=== PATIENT | male | born 1985 | race African-American/Black ===

== ENCOUNTER → 2019-06-16 | Day surgery (SDC) | payer BC ==
[~2019-06-16] MED LIST: DONNATAL/LIDOCAINE/MAALOX 30 ML SUSP PO ONE; FENTANYL CITRATE/PF 100MCG/2 ML INJ ONE; LIDOCAINE HCL 2% LOCAL INJ 5 ML SDV VIAL INJ ONE; MIDAZOLAM HCL 2 MG/2 ML VIAL ONE; PANTOPRAZOLE 40 MG 10ML VIAL ONE; PROPOFOL IV EMULSION 10 MG/ML 50 ML VIAL ONE
[2019-06-16 08:20] VITALS: BP 131/85
--- NOTE | 2019-06-16 08:20 | Operative Report ---
DATE OF PROCEDURE: 06/16/2019 SURGEON: Pilo Escobar MD PROCEDURE: EGD with biopsies. INDICATIONS FOR EGD: Upper abdominal pain. MEDICATION: The patient was done under MAC, please see anesthesiologist's note. PROCEDURE IN DETAIL: With the patient in left lateral decubitus position, a flexible fiberoptic Olympus gastroscope was introduced into the esophagus under direct visualization without any difficulty. There were some patchy erythema noted in the distal esophagus. The scope was then advanced with ease into the stomach and the mucosa overlying the antrum and the body revealed some patchy erythema and low-grade to moderate edema and biopsies were obtained, sent to stain for H pylori. The pylorus was of normal contour and shape, it was intubated with ease and the scope was advanced all the way to the second portion of the duodenum. Biopsies were obtained from the second portion and the duodenal bulb to rule out sprue. There was a minute cystic structure in the periampullary area and that was biopsied. The scope was then withdrawn back into the stomach and retroflexed. Mucosa overlying the fundus and the cardia appeared to be within normal limits. The scope was then straightened out, it was subsequently withdrawn. The patient tolerated the procedure well. IMPRESSION: 1. Distal esophagitis, mild. 2. Gastritis, biopsied. Biopsies sent to stain for Helicobacter pylori. 3. Rule out sprue. 4. Approximately 4 mm cyst in the periampullary area of the proximal second portion of the duodenum, biopsied. PLAN: Follow up histology. Initiate Dexilant 60 mg one p.o. q.a.m. before meals. We will give a trial of GI cocktail prior to discharge. Pilo Escobar MD [facility] /[id number] cc: Sarah Monahan DO
--- OUTSIDE RECORDS SUMMARY | 2019-06-17 09:49 | XMS REPORT ---
Author Author Sada Luo [facility] [employer] Address Unknown Phone Unavailable Care Team Providers Care Supervisor Looping Name Role Phone Sada Luo CP Unavailable Allergies, Adverse Reactions, Alerts Substance Reaction Event Type N.K.D.A. Info Not Available Non Drug Allergy Problems Problem Type Condition Code Onset Dates Condition Status Problem GERD (gastroesophageal reflux disease) K21.9 Active Problem BMI 24.0-24.9, adult Z68.24 Active Problem Mixed hyperlipidemia E78.2 Active Assessment Encntr screen for infections w sexl mode of transmiss Z11.3 Active Assessment GERD (gastroesophageal reflux disease) K21.9 Active Assessment Encntr for general adult medical exam w/o abnormal findings Z00.00 Active Medications No Known Medications Vital Signs Date/Time: May 21, 2019 BMI 27.94 Index Weight 206 lbs Height 72 in Cardiac Monitoring Heart Rate 67 /min Blood Pressure Diastolic 84 mm Hg Blood Pressure Systolic 126 mm Hg Results Name Result Date Reference Range Unit Abnormality Flag CBC (INCLUDES DIFF/PLT) ----ABSOLUTE NEUTROPHILS 2331 [id number] 9972-8959 cells/uL N ----MPV 11.1 [id number] 7.5-12.5 fL N ----EOSINOPHILS 2.4 67559468 % N ----HEMOGLOBIN 15.9 62771794 13.2-17.1 g/dL N ----MONOCYTES 10.7 99112340 % N ----HEMATOCRIT 48.9 21926707 38.5-50.0 % N ----LYMPHOCYTES 35.8 74135542 % N ----MCV 81.2 84751633 80.0-100.0 fL N ----NEUTROPHILS 49.6 14823575 % N ----MCH 26.4 45432498 27.0-33.0 pg L ----ABSOLUTE BASOPHILS 71 23366349 0-200 cells/uL N ----MCHC 32.5 13535777 32.0-36.0 g/dL N ----BASOPHILS 1.5 96905666 % N ----ABSOLUTE EOSINOPHILS 113 20190521 15-500 cells/uL N ----RDW 13.1 20190521 11.0-15.0 % N ----ABSOLUTE MONOCYTES 503 20190521 200-950 cells/uL N ----WHITE BLOOD CELL COUNT 4.7 20190521 3.8-10.8 Thousand/uL N ----PLATELET COUNT 203 20190521 140-400 Thousand/uL N ----RED BLOOD CELL COUNT 6.02 02200533 4.20-5.80 Million/uL H ----ABSOLUTE LYMPHOCYTES 1683 20190521 850-3900 cells/uL N URINALYSIS, COMPLETE ----SQUAMOUS EPITHELIAL CELLS NONE SEEN 76412652 < OR=5 /HPF N ----GLUCOSE NEGATIVE 12802234 NEGATIVE N ----RBC NONE SEEN 63841672 < OR=2 /HPF N ----PH 8.0 20190521 5.0-8.0 N ----KETONES NEGATIVE 20190521 NEGATIVE N ----WBC NONE SEEN 23466834 < OR=5 /HPF N ----BILIRUBIN NEGATIVE 42740968 NEGATIVE N ----LEUKOCYTE ESTERASE NEGATIVE 20190521 NEGATIVE N ----COLOR YELLOW 20190521 YELLOW N ----HYALINE CAST NONE SEEN 20190521 NONE SEEN /LPF N ----SPECIFIC GRAVITY 1.027 20190521 1.001-1.035 N ----BACTERIA NONE SEEN 20190521 NONE SEEN /HPF N ----APPEARANCE CLEAR 20190521 CLEAR N ----NITRITE NEGATIVE 20190521 NEGATIVE N ----OCCULT BLOOD NEGATIVE [id number] NEGATIVE N ----PROTEIN NEGATIVE 20190521 NEGATIVE N UREA BREATH TEST, INFRARED (UBIT) ----RESULT: NOT DETECTED 20190521 NOT DETECTED N LIPID PANEL ----NON HDL CHOLESTEROL 190 81881219 <130 mg/dL (calc) H ----LDL-CHOLESTEROL 159 39870440 mg/dL (calc) H ----CHOL/HDLC RATIO 5.6 45631569 <5.0 (calc) H ----HDL CHOLESTEROL 41 17058886 >40 mg/dL N ----TRIGLYCERIDES 159 79461896 <150 mg/dL H ----CHOLESTEROL, TOTAL 231 20190521 <200 mg/dL H HIV 1/2 ANTIGEN/ANTIBODY,FOURTH GENERATION W/RFL ----HIV AG/AB, 4TH GEN NON-REACTIVE 20190521 NON-REACTIVE N RPR (DX) W/REFL TITER AND CONFIRMATORY TESTING ----RPR (DX) W/REFL TITER AND CONFIRMATORY TESTING NON-REACTIVE 20190521 NON- REACTIVE N HEPATITIS B SURFACE ANTIGEN W/REFL CONFIRM ----HEPATITIS B SURFACE ANTIGEN NON-REACTIVE [id number] NON-REACTIVE N COMPREHENSIVE METABOLIC PANEL W/O eGFR ----CARBON DIOXIDE 27 20190521 20-32 mmol/L N ----CHLORIDE 102 20190521 98-110 mmol/L N ----POTASSIUM 4.3 20190521 3.5-5.3 mmol/L N ----SODIUM 135 20190521 135-146 mmol/L N ----BUN/CREATININE RATIO 20 20190521 6-22 (calc) N ----CREATININE 1.34 20190521 0.60-1.35 mg/dL N ----UREA NITROGEN (BUN) 27 20190521 7-25 mg/dL H ----GLUCOSE 87 20190521 65-99 mg/dL N ----BILIRUBIN, TOTAL 0.6 20190521 0.2-1.2 mg/dL N ----ALKALINE PHOSPHATASE 75 20190521 40-115 U/L N ----AST 27 20190521 10-40 U/L N ----ALT 33 20190521 9-46 U/L N ----PROTEIN, TOTAL 7.5 20190521 6.1-8.1 g/dL N ----ALBUMIN 4.9 20190521 3.6-5.1 g/dL N ----GLOBULIN 2.6 20190521 1.9-3.7 g/dL (calc) N ----ALBUMIN/GLOBULIN RATIO 1.9 20190521 1.0-2.5 (calc) N ----CALCIUM 9.7 20190521 8.6-10.3 mg/dL N SURESWAB(R) CHLAMYDIA/ N. GONORRHOEAE RNA, TMA ----NEISSERIA GONORRHOEAE RNA, TMA NOT DETECTED 20190521 NOT DETECTED N ----CHLAMYDIA TRACHOMATIS RNA, TMA NOT DETECTED 20190521 NOT DETECTED N TSH W/REFLEX TO FT4 ----TSH W/REFLEX TO FT4 1.54 20190521 0.40-4.50 mIU/L N Summary Purpose eClinicalWorks Submission
--- OUTSIDE RECORDS SUMMARY | 2019-06-17 09:49 | XMS REPORT | Summary of Care ---
Author Author [facility] General Surgery [facility] Organization [facility] General Surgery [facility] Address Unknown Phone Unavailable Encounter HQ Encntr_alias(FIN) [id number] Date(s): 10/13/18 - 10/14/18 [facility] General Surgery [facility] [address] [address] [place] [address]- [phone] Vital Signs No data available for this section Problem List Condition Effective Dates Status Health Status Informant Spleen Active disease(Probable Diagnosis) Lymphadenopathy(Prob Active able Diagnosis) Skin lesion(Probable Active Diagnosis) Allergies, Adverse Reactions, Alerts No Known Medication Allergies Medications No data available for this section Results No data available for this section Immunizations No data available for this section Procedures No data available for this section Social History Social History Type Response Substance Abuse Use: None. Alcohol Never Smoking Status Never smoker; Exposure to Tobacco Smoke None; Cigarette Smoking Last 365 Days No; Reg Smoking Cessation Counseling No entered on: 09/26/18 Assessment and Plan No data available for this section
--- OUTSIDE RECORDS SUMMARY | 2019-06-17 09:49 | XMS REPORT | Continuity of Care Document ---
Author Author [place] Address Unknown Phone Unavailable Care Team Providers Care Brass Pickler Name Role Phone Pattern [employer] Information [facility] Unavailable Unavailable Problems Problem Status Onset Date Classification Date Reported Comments Source Disease of spleen, unspecified 10/13/2018 04/27/2019 [facility] DX: L98.9=DISORDER OF THE SKIN AND SUBCU Active 09/29/2018 [facility] Epigastric pain 01/28/2018 04/29/2018 [facility] Abdominal pain, epigastric 01/21/2018 04/29/2018 [facility] ABD/BACK PAIN Active 01/21/2018 [facility] M25.311 - "OTHER INSTABILITY, RIGHT SHOU Active 12/08/2016 JACQUELINE Spaulding, JACQUELINE Kaufman GERD Active Problem 06/08/2019 [facility] BMI 24.0-24.9, adult Active Problem 06/08/2019 [facility] Mixed hyperlipidemia Active Problem 06/08/2019 [facility] Encntr screen for infections w sexl mode of transmiss Active Diagnosis 06/08/2019 [facility] Encntr for general adult medical exam w/o abnormal findings Active Diagnosis 06/08/2019 [facility] Esophageal candidiasis Active Diagnosis 11/11/2018 [facility] Skin rash Active Diagnosis 11/11/2018 [facility] Disorder of the skin and subcutaneous tissue, unspecified 04/27/2019 [facility] Generalized enlarged lymph nodes 04/27/2019 [facility] Dorsalgia, unspecified 04/29/2018 [facility] Spleen disease Active Problem 05/06/2019 [facility] Lymphadenopathy Active Problem 05/06/2019 [facility] Skin lesion Active Problem 05/06/2019 [facility] Medications Medication Details Route Status Patient Instructions Ordering Provider Order Date Source Diflucan 1 tablet Orally Active 100 mg Orally twice a day (bid) Ghebranious 10/31/2018 [facility] Omnipaque 300 injectable solution 100 mL, Route: IV, Drug Form: SOLN, Dosing Weight 80.994, kg, ONCALL, GFR > 45 mL/min, Start date: 10/07/18 10:00:00 SPECIAL SERVICE REPRESENTATIVE, Duration: 1 doses or times, Stop date: 10/08/18 0:00:00 CSTNotes: (Same as:Omnipaque 300). WASTE: F/P - Black; E - Municipal Trash Bin No Longer Active 10/07/2018 [facility] Sucralfate 100 MG/ML Oral Suspension [Carafate] 1 gm=10 ml, PO, Before Meals & Bedtime, # 200 ml, 0 Refill(s) Active 01/21/2018 [facility] pantoprazole 40 MG Enteric Coated Tablet [Protonix] 40 mg=1 tab, PO, Daily, # 30 tab, 0 Refill(s) Active 01/21/2018 [facility] Saline Flush 0.9% 10 mL, Route: IVP, Drug Form: INJ, Dosing Weight 95.455, kg, PRN, PRN Line Flush, Start date: 01/21/18 8:41:00 SPECIAL SERVICE REPRESENTATIVE, Duration: 30 day, Stop date: 02/20/18 9:40:00 CDTNotes: preservative free. Inactive 01/21/2018 [facility] Allergies, Adverse Reactions, Alerts Substance Category Reaction Severity Reaction type Status Date Reported Comments Source N.K.D.A. Adverse Reaction Info Not Available Adverse Reaction Active 05/21/2019 [facility] No Known Medication Allergies Assertion Drug allergy Medical Group Immunizations No Data Provided for This Section Results Order Name Results Value Reference Range Date Interpretation Comments Source CHEM PANEL eGFR 104 10/07/2018 Result Comment: The eGFR is calculated using the CKD-EPI formula. In most young, healthy individuals the eGFR will be >90 mL/min/1.73m2. The eGFR declines with age. An eGFR of 60-89 may be normal in some populations, particularly the elderly, for whom the CKD-EPI formula has not been extensively validated. Use of the eGFR is not recommended in the following populations:

Individuals with unstable creatinine concentrations, including patients and those with serious co-morbid conditions.

Patients with extremes in muscle mass or diet.

The data above are obtained from the National Kidney Disease Education Program (NKDEP) which additionally recommends that when the eGFR is used in patients with extremes of body mass index for purposes of drug dosing, the eGFR should be multiplied by the estimated BMI. [facility] CHEM PANEL POC Creatinine 1.1 0.5 - 1.4 10/07/2018 [facility] CARDIAC ENZYMES Troponin-I <0.02 0.00 - 0.40 01/21/2018 [facility] CHEM PANEL Lipase Lvl 190 73 - 393 01/21/2018 [facility] CHEM PANEL eGFR 85 01/21/2018 Result Comment: The eGFR is calculated using the CKD-EPI formula. In most young, healthy individuals the eGFR will be >90 mL/min/1.73m2. The eGFR declines with age. An eGFR of 60-89 may be normal in some populations, particularly the elderly, for whom the CKD-EPI formula has not been extensively validated. Use of the eGFR is not recommended in the following populations:

Individuals with unstable creatinine concentrations, including patients and those with serious co-morbid conditions.

Patients with extremes in muscle mass or diet.

The data above are obtained from the National Kidney Disease Education Program (NKDEP) which additionally recommends that when the eGFR is used in patients with extremes of body mass index for purposes of drug dosing, the eGFR should be multiplied by the estimated BMI. [facility] CHEM PANEL Albumin Lvl 3.7 3.5 - 5.0 01/21/2018 [facility] CHEM PANEL Total Protein 7.6 6.4 - 8.4 01/21/2018 [facility] CHEM PANEL Calcium Lvl 8.8 8.5 - 10.5 01/21/2018 [facility] CHEM PANEL Alk Phos 93 39 - 136 01/21/2018 [facility] CHEM PANEL AST 29 0 - 37 01/21/2018 [facility] CHEM PANEL ALT 62 0 - 65 01/21/2018 [facility] CHEM PANEL CO2 27 24 - 32 01/21/2018 [facility] CHEM PANEL Sodium Lvl 139 135 - 145 01/21/2018 [facility] CHEM PANEL BUN 4 7 - 22 01/21/2018 [facility] CHEM PANEL Creatinine Lvl 1.29 0.50 - 1.40 01/21/2018 [facility] CHEM PANEL Glucose Lvl 98 70 - 99 01/21/2018 [facility] CHEM PANEL Potassium Lvl 3.6 3.5 - 5.1 01/21/2018 [facility] CHEM PANEL Chloride Lvl 102 95 - 109 01/21/2018 [facility] CHEM PANEL Bili Total 0.6 0.2 - 1.3 01/21/2018 [facility] CHEM PANEL A/G Ratio 0.9 0.7 - 1.6 01/21/2018 [facility] CHEM PANEL B/C Ratio 3 6 - 25 01/21/2018 [facility] CHEM PANEL Globulin 3.9 2.7 - 4.2 01/21/2018 [facility] CHEM PANEL AGAP 13.6 10.0 - 20.0 01/21/2018 [facility] HEMATOLOGY Lymphocytes # 2.0 1.0 - 5.5 01/21/2018 [facility] HEMATOLOGY Eosinophils 2.3 0.0 - 4.0 01/21/2018 [facility] HEMATOLOGY Basophils 1.2 0.0 - 1.0 01/21/2018 [facility] HEMATOLOGY Segs-Bands # 2.5 1.5 - 8.1 01/21/2018 [facility] HEMATOLOGY Monocytes # 0.6 0.0 - 0.8 01/21/2018 [facility] HEMATOLOGY Eosinophils # 0.1 0.0 - 0.5 01/21/2018 [facility] HEMATOLOGY Basophils # 0.1 0.0 - 0.2 01/21/2018 [facility] HEMATOLOGY Monocytes 11.1 2.0 - 12.0 01/21/2018 [facility] HEMATOLOGY Segs 47.3 45.0 - 75.0 01/21/2018 [facility] Lymphocytes 38.1 20.0 - 40.0 01/21/2018 [facility] HEMATOLOGY PTT 27.8 22.9 - 35.8 01/21/2018 [facility] HEMATOLOGY Platelet 211 133 - 450 01/21/2018 [facility] HEMATOLOGY MCH 27.2 27.0 - 31.0 01/21/2018 [facility] MCHC 34.0 32.0 - 36.0 01/21/2018 [facility] HEMATOLOGY MPV 8.1 7.4 - 10.4 01/21/2018 [facility] HEMATOLOGY RDW 12.5 11.5 - 14.5 01/21/2018 [facility] HEMATOLOGY Hgb 17.0 14.0 - 18.0 01/21/2018 [facility] HEMATOLOGY WBC 5.3 3.7 - 10.4 01/21/2018 [facility] HEMATOLOGY RBC 6.27 4.70 - 6.10 01/21/2018 [facility] HEMATOLOGY MCV 79.9 80.0 - 94.0 01/21/2018 [facility] HEMATOLOGY Hct 50.1 42.0 - 54.0 01/21/2018 [facility] HEMATOLOGY PT 13.8 12.0 - 14.7 01/21/2018 [facility] HEMATOLOGY INR 1.06 0.85 - 1.17 01/21/2018 [facility] URINE AND STOOL UA Color Yellow *NA* (01/21/18 8:45 AM) Yellow 01/21/2018 [facility] URINE AND STOOL UA Turbidity Clear (01/21/18 8:45 AM) Clear 01/21/2018 [facility] URINE AND STOOL UA Spec Grav 1.013 <=1.030 01/21/2018 [facility] URINE AND STOOL UA Sq Epi None Seen 01/21/2018 [facility] URINE AND STOOL UA Mucus Few /LPF None Seen /LPF 01/21/2018 [facility] URINE AND STOOL UA Bili Negative *NA* (01/21/18 8:45 AM) Negative 01/21/2018 [facility] URINE AND STOOL UA Nitrite Negative (01/21/18 8:45 AM) Negative 01/21/2018 [facility] URINE AND STOOL UA Blood Negative (01/21/18 8:45 AM) Negative 01/21/2018 [facility] URINE AND STOOL UA Leuk Est Negative (01/21/18 8:45 AM) Negative 01/21/2018 [facility] URINE AND STOOL UA Urobilinogen <=1.0 mg/dL 0.1 - 1.0 01/21/2018 [facility] URINE AND STOOL UA pH >=9.0 *ABN* (01/21/18 8:45 AM) 5.0 - 8.0 01/21/2018 [facility] URINE AND STOOL UA Ketones Negative mg/dL Negative mg/dL 01/21/2018 [facility] URINE AND STOOL UA Protein Negative mg/dL Negative mg/dL 01/21/2018 [facility] URINE AND STOOL UA Glucose Negative mg/dL Negative mg/dL 01/21/2018 [facility] Pathology Reports No Data Provided for This Section Diagnostic Reports Report Value Date Source Abdomen/Pelvis w IV contrast CT Study: CT ABDOMEN AND PELVIS WITH CONTRAST Clinical Indication: - swollen lymph nodes; adenopathy Comparison: None Technique: Axial images with sagittal and coronal reconstructions were obtained following oral and nonionic intravenous contrast, Omnipaque [address] imaging performed at this location utilizes radiation dose optimization techniques which include one or more of the following: -Automated exposure control -Adjustment of the mA and/or kV according to patient size -Use of iterative reconstruction technique CT Radiation Dose DLP 455 mGy-cm FINDINGS: The lung bases are clear. The liver is normal in size and without focal abnormality. Gallbladder and common duct are normal. The spleen appears normal. There are enhanced kidneys, adrenals and pancreas are not remarkable. There is a moderate amount of fecal material within the colon. No intestinal lesion or mesenteric inflammatory change is noted. Unenhanced urinary bladder and prostate gland are not remarkable. There is virtually no mesenteric or retroperitoneal fat. No adenopathy or ascites is seen. IMPRESSION: 1. No adenopathy. 2. Moderate amount of colonic fecal material. 3. Normal spleen. SL: [id number] 10/07/2018 [facility] Abdomen acute series w chest 1 view DX Study: Abdomen acute series w chest 1 view DX Clinical Indication: Diffuse abdominal pain Comparison: None FINDINGS: CHEST: The cardiac silhouette is normal in size. Lungs are without consolidation or congestion. No pleural effusion or pneumothorax is seen. Bony thorax is unremarkable. ABDOMEN: The bowel gas pattern is nonobstructive in appearance. Moderate amount of fecal material throughout the colon is present. No intraperitoneal free air is seen. There are no suspicious calcifications. Osseous structures are unremarkable. IMPRESSION: 1. Nonobstructive bowel gas pattern. 2. No acute cardiopulmonary disease. SL: [id number] 01/21/2018 [facility] Inj Arthrogram Shoulder Unilat DX EXAM: FLUOROSCOPY-GUIDED RIGHT SHOULDER INJECTION FOR MR ARTHROGRAM DATE: 12/13/2016 9:16 AM SPECIAL SERVICE REPRESENTATIVE INDICATION: M25.311 Other instability, right shoulder COMPARISON: none. TECHNIQUE: Consent: An informed consent was obtained from the patient prior to the procedure. Appropriate time out procedures were performed. The skin was prepped and draped in the usual fashion under aseptic precautions. 1% lidocaine was utilized for local anesthesia. Under fluoroscopic guidance a 22 gauge long spinal needle was used to access the shoulder joint. 2mL of Omnipaque 240 was injected under fluoroscopic guidance to confirm intra-articular needle placement. 6 mL of a mixture of 0.1 mL Omniscan with 10 mL of saline, and 4 mL of 0.2% ropivacaine were drawn into a 10 mL syringe. 8 mL of this mixture was injected into the shoulder joint. No immediate complications. Preprocedure pain score: 0/10 Postprocedure pain score: 0/10 FLUORO TIME: 20 seconds, DAP 43.52. IMPRESSION: Technically successful fluoroscopy-guided right shoulder injection for MR arthrogram. 12/13/2016 PILI JACQUELINE Kaufman Shoulder w contrast MRI EXAM: MR RIGHT SHOULDER WITH CONTRAST DATE: 12/13/2016 9:03 AM SPECIAL SERVICE REPRESENTATIVE INDICATION: M25.311 Other instability, right shoulder. Lateral shoulder pain for one month; old football injury in 2012 COMPARISON: None available TECHNIQUE: Axial, oblique coronal, and oblique sagittal MR images of the shoulder. IV contrast: None. Intra-articular injection of 6 mm Omniscan; please see further details on arthrogram dictation. FINDINGS: Due to patient's claustrophobia, images are degraded by motion and repeat sequences were obtained. ROTATOR CUFF AND ASSOCIATED STRUCTURES Rotator cuff: There is no complete or bursal/articular sided partial rotator cuff tear. The subscapularis constituent of the rotator cuff is intact. Bursa: No bursal effusion or thickening is seen. Musculature: There is no muscular tear, contusion, or atrophy. Acromioclavicular joint: There are mild degenerative changes of the acromioclavicular joint. A type 1 acromion configuration is noted; no anterior or lateral acromial downsloping. OSSEOUS STRUCTURES There are no fractures or regions of abnormal bone marrow signal intensity. LONG BICIPITAL TENDON The biceps tendon is normally situated within the bicipital groove. No complete or partial biceps tendon tear is present. GLENOHUMERAL JOINT Joint fluid: Injected contrast outlines the glenohumeral joint. Cartilage and Bone: Minimal fissuring of the cartilage in the mid 3rd of the glenoid (series 13, image 12). No Hill-Sachs, reverse Hill-Sachs, or bony Bankart lesions are seen. Labrum: There are postsurgical changes from prior labral fixation with multiple suture anchors seen and scarring in the anterior superior and inferior quadrants. There is increased T2 signal in the anterior superior and posterior labrum spanning from approximately the 1 to 6 o'clock position with a nondisplaced labral tear involving the posterior superior and inferior quadrants. No paralabral cysts are seen. Other support structures: No capsular or ligamentous abnormality is seen. OTHER FINDINGS: None. IMPRESSION: 1. Global labral abnormality with nondisplaced labral tear involving the anterior superior and posterior inferior quadrants extending from the 1 to 6 o'clock position. 2. Minimal cartilaginous fissuring in the middle 3rd of the glenoid. 3. Mild acromioclavicular joint arthropathy. 12/13/2016 JACQUELINE Kaufman Consultation Notes No Data Provided for This Section Discharge Summaries No Data Provided for This Section History and Physicals No Data Provided for This Section Vital Signs Vital Sign Value Date Comments Source Weight 208 05/28/2019 [facility] Height 72 05/28/2019 [facility] Heart Rate 63 05/28/2019 [facility] Diastolic (mm Hg) 74 05/28/2019 [facility] Systolic (mm Hg) 118 05/28/2019 [facility] Weight 206 05/21/2019 [facility] Height 72 05/21/2019 [facility] Heart Rate 67 05/21/2019 [facility] Diastolic (mm Hg) 84 05/21/2019 [facility] Systolic (mm Hg) 126 05/21/2019 [facility] Weight 186 10/31/2018 [facility] Height 72 10/31/2018 [facility] Heart Rate 84 10/31/2018 [facility] Diastolic (mm Hg) 68 10/31/2018 [facility] Systolic (mm Hg) 162 10/31/2018 [facility] Height 187.96 cm 09/26/2018 [facility] Weight 80.994 09/26/2018 [facility] BMI Calculated 22.93 09/26/2018 [facility] Systolic (mm Hg) 136 09/26/2018 [facility] Diastolic (mm Hg) 81 09/26/2018 [facility] Temperature Oral (F) 98.4 F 09/26/2018 [facility] Heart Rate 71 09/26/2018 [facility] Systolic (mm Hg) 146 01/21/2018 [facility] Diastolic (mm Hg) 88 01/21/2018 [facility] Respitory Rate 18 01/21/2018 [facility] Heart Rate 65 01/21/2018 [facility] Temperature Oral (F) 98.5 F 01/21/2018 [facility] Weight 95.455 01/21/2018 [facility] Heart Rate 83 01/21/2018 [facility] Systolic (mm Hg) 162 01/21/2018 [facility] Diastolic (mm Hg) 94 01/21/2018 [facility] Respitory Rate 18 01/21/2018 [facility] Temperature Oral (F) 98.6 F 01/21/2018 [facility] Height 187.96 cm 01/21/2018 [facility] BMI Calculated 27.02 01/21/2018 [facility] Encounters Location Location Details Encounter Type Encounter Number Reason For Visit Attending Provider ADM Date DC Date Status Source [facility] [place] [facility] [id number] Quincy Hood 12/13/2016 12/14/2016 JACQUELINE Kaufman [facility] Emergency [id number] Aguilar Sophy 01/21/2018 01/21/2018 [facility] Outpatient [id number] ABHI ALAWADI 09/26/2018 [facility] Outpatient [id number] Abhi Alawadi 09/26/2018 09/27/2018 [facility] Outpatient [id number] Abhi Alawadi 10/07/2018 10/08/2018 [facility] Phone Message [id number] 10/13/2018 10/15/2018 [facility] Phone Message [id number] 10/13/2018 10/15/2018 [facility] Outpatient [id number] ABHI ALAWADI 10/17/2018 [facility] Ambulatory Pre-Reg [id number] Abhi Alawadi 10/17/2018 10/17/2018 [facility] Procedures Procedure Code Date Perfomer Comments Source Injection procedure for shoulder arthrography or enhanced CT/MRI shoulder arthrography 93779 12/13/2016 JACQUELINE Kaufman Assessment and Plan No Data Provided for This Section Plan of Care No Data Provided for This Section Social History Social History Date Source Social History TypeResponse Substance Abuse Use: None. Alcohol Never Smoking Status Never smoker; Exposure to Tobacco Smoke None; Cigarette Smoking Last 365 Days No; Reg Smoking Cessation Counseling No entered on: 09/26/18 09/26/2018 [facility] Social History TypeResponse Substance Abuse Use: None. Alcohol Never Smoking Status Never smoker; Exposure to Tobacco Smoke None; Cigarette Smoking Last 365 Days No; Reg Smoking Cessation Counseling No entered on: 09/26/18 09/26/2018 [facility] No data available for this section 12/14/2016 JACQUELINE Kaufman Family History No Data Provided for This Section Advance Directives No Data Provided for This Section Functional Status No Data Provided for This Section
--- OUTSIDE RECORDS SUMMARY | 2019-06-17 09:49 | XMS REPORT | Summary of Care ---
Author Author [facility] Outpatient Imaging - [facility]patient [facility] - [facility] Address Unknown Phone Unavailable Encounter HQ Encntr_alias(FIN) [id number] Date(s): 12/13/16 - 12/13/16 [facility] Outpatient Imaging - [facility] [address] [place] [address]- Discharge Disposition: Home or Self Care Attending Physician: Quincy Hood MD Vital Signs No data available for this section Problem List No data available for this section Allergies, Adverse Reactions, Alerts No data available for this section Medications No data available for this section Results No data available for this section Immunizations No data available for this section Procedures Procedure Date Related Diagnosis Body Site Injection procedure for shoulder arthrography 12/13/[address]/MRI shoulder arthrography Social History No data available for this section Assessment and Plan No data available for this section
--- OUTSIDE RECORDS SUMMARY | 2019-06-17 09:49 | XMS REPORT | Summary of Care ---
Author Author [facility] General Surgery [facility] Organization [facility] General Surgery [facility] Address Unknown Phone Unavailable Encounter HQ Gretchenntr_aliabel(FIN) [id number] Date(s): 10/17/18 - 10/17/18 [facility] General Surgery [facility] [address] [facility] [address] [address] [place] [address]- [phone] Attending Physician: Edwina Fung MD Vital Signs No data available for [...]
--- OUTSIDE RECORDS SUMMARY | 2019-06-17 09:49 | XMS REPORT | Summary of Care ---
Author Author [facility] Organization [facility] Address Unknown Phone Unavailable Encounter MICHAEL Pablo(FIN) [phone] Date(s): 01/21/18 - 01/21/18 [facility] [address] [place] [address]- Encounter Diagnosis Abdominal pain, epigastric (Discharge Diagnosis) - 01/21/18 Epigastric pain (Final) - 01/27/18 Dorsalgia, unspecified (Final) - Discharge Disposition: Home or Self Care Attending Physician: Aguilar Beckett MD Vital Signs Most recent to 1 2 oldest [Reference Range]: Height 187.96 cm (01/21/18 8:14 AM) Temperature Oral 98.5 DegF 98.6 DegF [96.4-99.1 DegF] (01/21/18 12:18 PM) (01/21/18 8:14 AM) Blood Pressure 146/88 mmHg 162/94 mmHg [90-140/60-90 mmHg] *HI* *HI* (01/21/18 12:18 PM) (01/21/18 8:14 AM) Respiratory Rate 18 BRMIN 18 BRMIN [14-20 BRMIN] (01/21/18 12:18 PM) (01/21/18 8:14 AM) Peripheral Pulse 65 bpm 83 bpm Rate [60-100 bpm] (01/21/18 12:18 PM) (01/21/18 8:14 AM) Weight 95.455 kg (01/21/18 8:14 AM) Body Mass Index 27.02 m2 (01/21/18 8:14 AM) Problem List No data available for this section Allergies, Adverse Reactions, Alerts Substance Reaction Severity Status NKDA Active Medications Carafate 1 g/10 mL oral suspension 1 gm=10 ml, PO, Before Meals & Bedtime, # 200 ml, 0 Refill(s) Start Date: 01/21/18 Status: Ordered Protonix 40 mg oral enteric coated tablet 40 mg=1 tab, PO, Daily, # 30 tab, 0 Refill(s) Start Date: 01/21/18 Status: Ordered Saline Flush 0.9% 10 mL, Route: IVP, Drug Form: INJ, Dosing Weight 95.455, kg, PRN, PRN Line Flush , Start date: 01/21/18 8:41:00 EARLY CHILDHOOD EDUCATION COORDINATOR, Duration: 30 day, Stop date: 02/20/18 9:40:0 0 CDT Notes: preservative free. Start Date: 01/21/18 Stop Date: 01/21/18 Status: Discontinued Results ELECTROLYTES Most recent to 1 oldest [Reference Range]: Sodium Lvl [135-145 139 mEq/L mEq/L] (01/21/18 8:45 AM) Potassium Lvl 3.6 mEq/L [3.5-5.1 mEq/L] (01/21/18 8:45 AM) Chloride Lvl [95-109 102 mEq/L mEq/L] (01/21/18 8:45 AM) CO2 [24-32 mEq/L] 27 mEq/L (01/21/18 8:45 AM) AGAP [10.0-20.0 13.6 mEq/L mEq/L] (01/21/18 8:45 AM) CHEM PANEL Most recent to 1 oldest [Reference Range]: Creatinine Lvl 1.29 mg/dL [0.50-1.40 mg/dL] (01/21/18 8:45 AM) eGFR 85 mL/min/1.73m2 1 *NA* (01/21/18 8:45 AM) BUN [7-22 mg/dL] 4 mg/dL *LOW* (01/21/18 8:45 AM) B/C Ratio [6-25] 3 *LOW* (01/21/18 8:45 AM) Glucose Lvl [70-99 98 mg/dL mg/dL] (01/21/18 8:45 AM) Total Protein 7.6 g/dL [6.4-8.4 g/dL] (01/21/18 8:45 AM) Albumin Lvl [3.5-5.0 3.7 g/dL g/dL] (01/21/18 8:45 AM) Globulin [2.7-4.2 3.9 g/dL g/dL] (01/21/18 8:45 AM) A/G Ratio [0.7-1.6] 0.9 (01/21/18 8:45 AM) Calcium Lvl 8.8 mg/dL [8.5-10.5 mg/dL] (01/21/18 8:45 AM) ALT [0-65 unit/L] 62 unit/L (01/21/18 8:45 AM) AST [0-37 unit/L] 29 unit/L (01/21/18 8:45 AM) Alk Phos [39-136 93 unit/L unit/L] (01/21/18 8:45 AM) Bili Total [0.2-1.3 0.6 mg/dL mg/dL] (01/21/18 8:45 AM) Lipase Lvl [73-393 190 unit/L unit/L] (01/21/18 8:45 AM) 1Result Comment: The eGFR is calculated using the [...] from the National Kid[employer] Disease Education Program ( NKDEP) which additionally recommends that when the eGFR is used in patients with extremes of body mass index for purposes of drug dosing, the eGFR should be mul tiplied by the estimated BMI. CARDIAC ENZYMES Most recent to 1 oldest [Reference Range]: Troponin-I <0.02 ng/mL [0.00-0.40 ng/mL] (01/21/18 8:45 AM) URINE AND STOOL Most recent to 1 oldest [Reference Range]: UA Turbidity [Clear] Clear (01/21/18 8:45 AM) UA Color [Yellow] Yellow *NA* (01/21/18 8:45 AM) UA pH [5.0-8.0] >=9.0 *ABN* (01/21/18 8:45 AM) UA Spec Grav 1.013 [<=1.030] (01/21/18 8:45 AM) UA Glucose [Negative Negative mg/dL mg/dL] *NA* (01/21/18 8:45 AM) UA Blood [Negative] Negative (01/21/18 8:45 AM) UA Ketones [Negative Negative mg/dL mg/dL] *NA* (01/21/18 8:45 AM) UA Protein [Negative Negative mg/dL mg/dL] (01/21/18 8:45 AM) UA Urobilinogen <=1.0 mg/dL [0.1-1.0 mg/dL] *NA* (01/21/18 8:45 AM) UA Bili [Negative] Negative *NA* (01/21/18 8:45 AM) UA Leuk Est Negative [Negative] (01/21/18 8:45 AM) UA Nitrite Negative [Negative] (01/21/18 8:45 AM) UA Sq Epi None Seen *NA* (01/21/18 8:45 AM) UA Mucus [None Seen Few /LPF /LPF] *NA* (01/21/18 8:45 AM) HEMATOLOGY Most recent to 1 oldest [Reference Range]: WBC [3.7-10.4 K/CMM] 5.3 K/CMM (01/21/18 8:45 AM) RBC [4.70-6.10 6.27 M/CMM M/CMM] *HI* (01/21/18 8:45 AM) Hgb [14.0-18.0 g/dL] 17.0 g/dL (01/21/18 8:45 AM) Hct [42.0-54.0 %] 50.1 % (01/21/18 8:45 AM) MCV [80.0-94.0 fL] 79.9 fL *LOW* (01/21/18 8:45 AM) MCH [27.0-31.0 pg] 27.2 pg (01/21/18 8:45 AM) MCHC [32.0-36.0 34.0 g/dL g/dL] (01/21/18 8:45 AM) RDW [11.5-14.5 %] 12.5 % (01/21/18 8:45 AM) MPV [7.4-10.4 fL] 8.1 fL (01/21/18 8:45 AM) Platelet [133-450 211 K/CMM K/CMM] (01/21/18 8:45 AM) Segs [45.0-75.0 %] 47.3 % (01/21/18 8:45 AM) Lymphocytes 38.1 % [20.0-40.0 %] (01/21/18 8:45 AM) Monocytes [2.0-12.0 11.1 % %] (01/21/18 8:45 AM) Eosinophils [0.0-4.0 2.3 % %] (01/21/18 8:45 AM) Basophils [0.0-1.0 1.2 % %] *HI* (01/21/18 8:45 AM) Segs-Bands # 2.5 K/CMM [1.5-8.1 K/CMM] (01/21/18 8:45 AM) Lymphocytes # 2.0 K/CMM [1.0-5.5 K/CMM] (01/21/18 8:45 AM) Monocytes # [0.0-0.8 0.6 K/CMM K/CMM] (01/21/18 8:45 AM) Eosinophils # 0.1 K/CMM [0.0-0.5 K/CMM] (01/21/18 8:45 AM) Basophils # [0.0-0.2 0.1 K/CMM K/CMM] (01/21/18 8:45 AM) PT [12.0-14.7 13.8 seconds seconds] (01/21/18 8:45 AM) INR [0.85-1.17] 1.06 (01/21/18 8:45 AM) PTT [22.9-35.8 27.8 seconds seconds] (01/21/18 8:45 AM) Immunizations No data available for this section Procedures No data available for this section Social History Social History Type Response Smoking Status Never smoker; Exposure to Tobacco Smoke None; Cigarette Smoking Last 365 Days No; Reg Smoking Cessation Counseling No entered on: 01/21/18 Assessment and Plan No data available for this section
--- OUTSIDE RECORDS SUMMARY | 2019-06-17 09:49 | XMS REPORT ---
Author Author Geovanny Justin Organization [employer] Address Unknown Phone Unavailable Care Team Providers Care Insurance Attorney Name Role Phone Geovanny Justin CP Unavailable Allergies, Adverse Reactions, Alerts Substance Reaction Event Type N.K.D.A. Info Not Available Non Drug Allergy Problems Problem Type Condition Code Onset Dates Condition Status Assessment Esophageal candidiasis B37.81 Active Problem BMI 24.0-24.9, adult Z68.24 Active Assessment Skin rash R21 Active Medications Medication Code System Code Instructions Start Date End Date Status Dosage Diflucan [facility] 57997060184 100 mg Orally twice a day (bid) Oct 31, 2018 Nov 14, 2018 Active 1 tablet Vital Signs Date/Time: Oct 31, 2018 BMI 25.22 Index Weight 186 lbs Height 72 in Cardiac Monitoring Heart Rate 84 /min Blood Pressure Diastolic 68 mm Hg Blood Pressure Systolic 162 mm Hg Results No Known Results Summary Purpose [employer] Submission
--- OUTSIDE RECORDS SUMMARY | 2019-06-17 09:49 | XMS REPORT | Summary of Care ---
Author Author [facility] General Surgery [facility] [place] Organization [facility] General Surgery [facility] [place] Address Unknown Phone Unavailable Encounter HQ Encntr_alias(FIN) [id number] Date(s): 10/13/18 - 10/14/18 [facility] General Surgery [facility] [place] [address] [address] [address] [place] [address]- [phone] Vital Signs No data available for this [...]
--- OUTSIDE RECORDS SUMMARY | 2019-06-17 09:49 | XMS REPORT | Summary of Care ---
Author Author [facility] Organization [facility] Address Unknown Phone Unavailable Care Team Providers Care Ladder Operator Name Role Phone Geovanny Justin PCP Encounter HQ Samy(FIN) [id number] Date(s): 10/07/18 - 10/07/18 [facility] [address] [place] [address]- [phone] Encounter Diagnosis Disease of spleen, unspecified (Final) - 10/12/18 Disorder of the skin and subcutaneous tissue, unspecified (Final) - Generalized enlarged lymph nodes (Final) - Discharge Disposition: Home or Self Care Attending Physician: Edwina Fung MD Referring Physician: Edwina Fung MD Vital Signs No data available for this section Problem List Condition Effective Dates Status Health Status Informant Spleen Active disease(Probable Diagnosis) Lymphadenopathy(Prob Active able Diagnosis) Skin lesion(Probable Active Diagnosis) Allergies, Adverse Reactions, Alerts No Known Medication Allergies Medications Omnipaque 300 injectable solution 100 mL, Route: IV, Drug Form: SOLN, Dosing Weight 80.994, kg, ONCALL, GFR > 45 mL/min, Start date: 10/07/18 10:00:00 FLANGING OPERATOR, Duration: 1 doses or times, Stop date: 10/08/18 0:00:00 FLANGING OPERATOR Notes: (Same as:Omnipaque 300).WASTE: F/P - Black; E - Municipal Trash Bin Start Date: 10/07/18 Stop Date: 10/08/18 Status: Completed Results Most recent to 1 oldest [Reference Range]: eGFR 104 mL/min/1.73m2 1 *NA* (10/07/18 10:01 AM) POC Creatinine 1.1 mg/dL [0.5-1.4 mg/dL] (10/07/18 10:01 AM) 1Result Comment: The eGFR is calculated [...] be mul tiplied by the estimated BMI. Immunizations No data available for this section [...]
--- OUTSIDE RECORDS SUMMARY | 2019-06-17 09:49 | XMS REPORT | Summary of Care ---
Author Author [facility] General Surgery [facility] Organization [facility] General Surgery [facility] Address Unknown Phone Unavailable Care Team Providers Care Relationship Manager Name Role Phone Geovanny Justin PCP Encounter HQ Tanya_dustin(FIN) [phone] Date(s): 09/26/18 - 09/26/18 [facility] General Surgery [facility] [address] [address] [place] [address]- [phone] Discharge Disposition: Home or Self Care Attending Physician: Edwina Fung MD Vital Signs Most recent to 1 oldest [Reference Range]: Height 187.96 cm (09/26/18 3:27 PM) Temperature Oral 98.4 DegF [96.4-99.1 DegF] (09/26/18 3:27 PM) Blood Pressure 136/81 mmHg [90-140/60-90 mmHg] (09/26/18 3:27 PM) Peripheral Pulse 71 bpm Rate [60-100 bpm] (09/26/18 3:27 PM) Weight 80.994 kg (09/26/18 3:27 PM) Body Mass Index 22.93 m2 (09/26/18 3:27 PM) Problem List Condition Effective Dates Status Health Status Informant Spleen Active disease(Probable Diagnosis) Lymphadenopathy(Prob Active able Diagnosis) Skin lesion(Probable Active Diagnosis) Allergies, Adverse Reactions, Alerts No Known Medication Allergies Medications No Known Medications Results No data available for this section [...]
--- OUTSIDE RECORDS SUMMARY | 2019-06-17 09:49 | XMS REPORT ---
Author Author Yodit Daniel Organization [employer] Address Unknown Phone Unavailable Care Team Providers Care Talent Development Consultant Name Role Phone Yodit Daniel CP Unavailable Allergies, Adverse Reactions, Alerts Substance Reaction Event Type N.K.D.A. Info Not Available Non Drug Allergy Problems Problem Type Condition Code Onset Dates Condition Status Problem GERD (gastroesophageal reflux disease) K21.9 Active Problem BMI 24.0-24.9, adult Z68.24 Active Problem Mixed hyperlipidemia E78.2 Active Assessment Mixed hyperlipidemia E78.2 Active Medications No Known Medications Vital Signs Date/Time: May 28, 2019 BMI 28.21 Index Weight 208 lbs Height 72 in Cardiac Monitoring Heart Rate 63 /min Blood Pressure Diastolic 74 mm Hg Blood Pressure Systolic 118 mm Hg Results No Known Results Summary Purpose [employer] Submission
== END | disposition home or self-care (01) ==
LOC: OR 05:40
PROVIDERS: ATTEND Internal Medicine Gastroenterology
DX: K29.70 Gastritis, unspecified, without bleeding (principal); K29.80 Duodenitis without bleeding; K20.9 Esophagitis, unspecified; K28.9 Gastrojejunal ulcer, unspecified as acute or chronic, without hemorrhage or perforation; R03.0 Elevated blood-pressure reading, without diagnosis of hypertension; Z68.26 Body mass index [BMI] 26.0-26.9, adult
CPT/HCPCS: 43239; C9113; J2001; J2250; J2704; J3010